=== PATIENT | female | born 1955 | race Caucasian/White ===

== ENCOUNTER 2023-02-20 09:56 | Observation (INO) ==
[2023-02-20] MEDS ORDERED: NS 0.9% 1000 ml BAG 1,000 ML IV ONE ×2 (10:19→11:45)
[2023-02-20 10:50] LABS: Hematocrit 38.3 % (35-45); Hemoglobin 13.4 g/dL (11.5-14.3); Mean Corpuscular Hgb Conc 35.1 g/dL (31-36); Mean Corpuscular Volume 96.9 fL (80-97); Mean Platelet Volume 10.3 fL (7.5-11.2); Platelet Count 260 10^3/uL (150-450); Red Blood Count 3.96 10^6/uL (3.63-4.92); Red Cell Distribution Width 13.2 % (12-17); White Blood Count 10.1 10^3/uL (3.8-11.8)
[2023-02-20 10:52] LABS: Magnesium 1.3 mg/dL (1.9-2.7)
[2023-02-20] MEDS ORDERED: Magnesium Sulfate IV 3 GM in NS 0.9% 100 ml BAG 100 ML IVPB ONE ×2 (11:02→17:23)
[2023-02-20 11:11] LABS: Albumin 4.3 g/dL (3.2-5.2); Anion Gap 13 mmol/L (2-16); CO2 Carbon Dioxide 24 mmol/L (22-32); Calcium 9.4 mg/dL (8.6-10.3); Chloride 86 mmol/L (101-111); Sodium 123 mmol/L (135-145)
[2023-02-20 11:17] LABS: ALT 18 U/L (7-52); Albumin/Globulin Ratio 1.6 (1-3); Alkaline Phosphatase 60 U/L (35-149); Blood Urea Nitrogen 12 mg/dL (6-24); Globulin 2.7 g/dL (2-4); Glucose 175 mg/dL (70-100); eGFR CKD-EPI 54.7 (>60)
[2023-02-20 11:29] LABS: Urine Appearance Clear; Urine Bilirubin Negative (Negative); Urine Blood Negative (Negative); Urine Color Straw; Urine Glucose Negative (Negative); Urine Ketones Negative (Negative); Urine Nitrite Negative (Negative); Urine Protein Negative (Negative); Urine Specific Gravity 1.002 (1.002-1.030); Urine Urobilinogen Negative (Negative)
[2023-02-20 11:51] LABS: TSH Ultra Thyroid Stim Horm 0.29 mcIU/mL (0.34-5.60)
[2023-02-20 12:34] LABS: Potassium Redraw 2.7 mmol/L (3.5-5.0)
[2023-02-20 12:47] LABS: ABS Basophils 0.1 10^3/uL (0.0-0.1); ABS Lymphocytes 1.6 10^3/uL (1.0-4.8); ABS Monocytes 0.8 10^3/uL (0.0-0.9); ABS Neutrophils 7.6 10^3/uL (1.5-7.6); ABS Nucleated RBC 0.02 10^3/ul; Eosinophil % 0.4 %; Lymphocyte % 15.7 %; Nucleated Red Blood Cells % 0.2 /100 WBC (0.0-0.4)
[2023-02-20] MEDS: KCL 20 MEQ/100 ML IVPREMIX 20 MEQ/100 ML BAG IV SCH ×2 (12:54→15:59)
[2023-02-20] MEDS ORDERED: Sulfur Hexaflouride MICROSPHR 25 MG VIAL ONE (14:04)
[2023-02-20 14:19] LABS: Free T4 1.89 ng/dL (0.61-1.12)
[2023-02-20 14:45] LABS: Alcohol, S < 13 mg/dL (<13)
[2023-02-20] MEDS ORDERED: Heparin DRIP 25,000 UNITS BAG 25,000 UNITS/500 ML BAG IV SCH (15:45)
[2023-02-20 15:48] LABS: CO2 Carbon Dioxide 17 mmol/L (22-32); Calcium 8.7 mg/dL (8.6-10.3); Chloride 92 mmol/L (101-111); Magnesium 1.6 mg/dL (1.9-2.7); Sodium 126 mmol/L (135-145)
[2023-02-20 15:54] LABS: Blood Urea Nitrogen 12 mg/dL (6-24); C Reactive Protein 1.72 mg/L (<8.01); Creatinine, Serum 0.98 mg/dL (0.51-0.95); Glucose 96 mg/dL (70-100); eGFR CKD-EPI 62.9 (>60)
[2023-02-20] MEDS ORDERED: Heparin 5000 UNITS/ML 1 mL VIAL IV SCH (16:00)
[2023-02-20 16:05] LABS: Anion Gap 17 mmol/L (2-16)
[2023-02-20] MEDS: NS 0.9% 1000 ml BAG 1,000 ML IV SCH (17:43)
[2023-02-20] MEDS ORDERED: Magnesium Sulfate IV 1GM/100ML 1 GM/100 ML BAG IV ONE (18:00)
[2023-02-20 18:24] LABS: Total T3 66 ng/dL (87-178)
[2023-02-20] MEDS ORDERED: Magnesium Sulfate 2 gm BAG 2 GM/50 ML BAG IV ONE (18:30)
[2023-02-20 19:02] LABS: ABS Basophils 0.1 10^3/uL (0.0-0.1); ABS Eosinophils 0.1 10^3/uL (0.0-0.5); ABS Lymphocytes 2.2 10^3/uL (1.0-4.8); ABS Neutrophils 8.8 10^3/uL (1.5-7.6); ABS Nucleated RBC 0.01 10^3/ul; Eosinophil % 0.7 %; Hemoglobin 13.1 g/dL (11.5-14.3); Lymphocyte % 18.3 %; Mean Corpuscular Hemoglobin 32.7 pg (27-33); Mean Corpuscular Hgb Conc 34.5 g/dL (31-36); Mean Corpuscular Volume 94.9 fL (80-97); Mean Platelet Volume 10.3 fL (7.5-11.2); Nucleated Red Blood Cells % 0.1 /100 WBC (0.0-0.4); Platelet Count 253 10^3/uL (150-450); Red Cell Distribution Width 13.1 % (12-17); White Blood Count 12.2 10^3/uL (3.8-11.8)
[2023-02-20 19:13] LABS: Calcium 8.7 mg/dL (8.6-10.3); Creatinine, Serum 1.01 mg/dL (0.51-0.95); Potassium 3.2 mmol/L (3.5-5.0); eGFR CKD-EPI 60.6 (>60)
[2023-02-21 03:43] LABS: Hematocrit 37.4 % (35-45); Mean Corpuscular Hgb Conc 34.7 g/dL (31-36); Mean Corpuscular Volume 98.1 fL (80-97); Mean Platelet Volume 10.1 fL (7.5-11.2); Platelet Count 251 10^3/uL (150-450); Red Blood Count 3.81 10^6/uL (3.63-4.92); Red Cell Distribution Width 13.3 % (12-17); White Blood Count 10.9 10^3/uL (3.8-11.8)
[2023-02-21 03:59] LABS: Calcium 8.2 mg/dL (8.6-10.3); Creatinine, Serum 1.05 mg/dL (0.51-0.95); Magnesium 2.5 mg/dL (1.9-2.7); Phosphorus 3.1 mg/dL (2.5-5.0); Potassium 2.9 mmol/L (3.5-5.0); eGFR CKD-EPI 57.9 (>60)
[2023-02-21 04:11] LABS: ABS Basophils 0.1 10^3/uL (0.0-0.1); ABS Eosinophils 0.2 10^3/uL (0.0-0.5); ABS Lymphocytes 2.2 10^3/uL (1.0-4.8); ABS Monocytes 0.9 10^3/uL (0.0-0.9); ABS Neutrophils 7.5 10^3/uL (1.5-7.6); ABS Nucleated RBC 0.01 10^3/ul; Eosinophil % 1.9 %; Lymphocyte % 20.5 %; Nucleated Red Blood Cells % 0.1 /100 WBC (0.0-0.4)
[2023-02-21] MEDS: KCL 20 MEQ/100 ML IVPREMIX 20 MEQ/100 ML BAG IV SCH ×4 (08:14→14:59)
[2023-02-21] MEDS: Aspirin EC 81 mg TAB.EC (enteric coated) PO SCH (08:14)
[2023-02-21] MEDS: NS 0.9% 1000 ml BAG 1,000 ML IV SCH (08:14)
[2023-02-21] MEDS ORDERED: Potassium Chlor 20 meq TAB.ER PO ONE (08:57)
[2023-02-21] MEDS ORDERED: niCARdipine 0.1MG/ML IVPREMIX 20 MG/200 ML BAG IV ONE (09:10)
[2023-02-21] MEDS ORDERED: Heparin 1,000 UNIT/ML 10 ml (10,000 UNITS) CATHLAB/DIALYSIS ONE ×2 (09:10→09:23)
[2023-02-21] MEDS ORDERED: Lidocaine 1% MPF 5 ML VIAL ONE (09:10)
[2023-02-21] MEDS ORDERED: nitroGLYCERIN DRIP 25,000 MCG/250 ML BTL ONE (09:10)
[2023-02-21] MEDS ORDERED: Iohexol 350 (CONTRAST) 100 ML PAK IV ONE ×2 (09:10→09:47)
[2023-02-21] MEDS ORDERED: Heparin 2 UNITS/ML 1000 mls 2,000 ML IV ONE (09:12)
[2023-02-21] MEDS ORDERED: Heparin 2 UNITS/ML 1000 mls 1,000 ML IV ONE (09:22)
[2023-02-21] MEDS ORDERED: fentaNYL 100 mcg/2 ml 50 MCG/ML VIAL ONE (09:23)
[2023-02-21] MEDS ORDERED: Midazolam 5 mg/5 ml VIAL 1 mg/ml 5 ml VIAL (5 mg) ONE (09:23)
[2023-02-21] MEDS ORDERED: Flumazenil 0.5 mg/5 ml 0.1 MG/ML 5 ml VIAL IV PRN (09:25)
[2023-02-21] MEDS ORDERED: Midazolam 10 mg/10 ml VIAL 1 mg/ml 10 ml VIAL (10 mg) IV SLOW PU ONE (09:25)
[2023-02-21] MEDS ORDERED: Naloxone 0.4 mg VIAL 0.4 mg/ml 1 ml VIAL IV PUSH PRN (09:25)
[2023-02-21] MEDS ORDERED: fentaNYL 100 mcg/2 ml 50 MCG/ML VIAL IV SLOW PU ONE (09:25)
[2023-02-21] MEDS ORDERED: Etomidate 40 mg/20 ml (2 MG/ML) 20 ml VIAL (40 mg) ONE (14:44)
[2023-02-21] MEDS ORDERED: Rocuronium 50 mg VIAL 10 mg/ml 5 ml VIAL (50 mg) ONE (14:44)
[2023-02-21] MEDS ORDERED: Potassium Chloride LIQUID 20 MEQ/15 ML LIQUID PO ONE (17:48)
[2023-02-22 06:18] LABS: Hematocrit 33.4 % (35-45); Hemoglobin 11.6 g/dL (11.5-14.3); Mean Corpuscular Hemoglobin 33.9 pg (27-33); Mean Corpuscular Hgb Conc 34.8 g/dL (31-36); Mean Corpuscular Volume 97.6 fL (80-97); Mean Platelet Volume 10.5 fL (7.5-11.2); Platelet Count 213 10^3/uL (150-450); Red Blood Count 3.42 10^6/uL (3.63-4.92); Red Cell Distribution Width 13.5 % (12-17); White Blood Count 13.6 10^3/uL (3.8-11.8)
[2023-02-22 06:35] LABS: Calcium 8.4 mg/dL (8.6-10.3); Creatinine, Serum 0.86 mg/dL (0.51-0.95); Magnesium 1.6 mg/dL (1.9-2.7); Potassium 3.4 mmol/L (3.5-5.0); eGFR CKD-EPI 73.5 (>60)
[2023-02-22] MEDS ORDERED: Magnesium Sulfate IV 3 GM in NS 0.9% 100 ml BAG 100 ML IVPB ONE (07:13)
[2023-02-22] MEDS: Aspirin EC 81 mg TAB.EC (enteric coated) PO SCH (08:48)
[2023-02-22] MEDS ORDERED: Potassium Chloride LIQUID 20 MEQ/15 ML LIQUID PO SCH (09:00)
[2023-02-22 13:49] VITALS: BP 111/68
[2023-02-22] MEDS ORDERED: Potassium Chloride LIQUID 20 MEQ/15 ML LIQUID PO ONE (17:48)
== END 2023-02-22 14:30 | disposition home or self-care (01) ==
LOC: EDHOLD 09:56 → ED 09:56 → SUATTDRO 12:42 → MEDTELE 02-21 01:18
PROVIDERS: ADMIT Internal Medicine; ATTEND Hospitalist